=== PATIENT | female | born 1945 | race Caucasian/White ===

== ENCOUNTER → 2016-04-25 | Day surgery (SDC) | payer MEDICARE ==
--- NOTE | 2016-04-19 08:54 | MH ---
cc: JIMY SILVA DATE OF ADMISSION: 04/25/2016 ADMISSION DIAGNOSIS Cataract, right eye. HISTORY OF PRESENT ILLNESS This 70-year-old white female is coming through [facility] for the purpose of a lens extraction of the right eye with intraocular lens implant under local anesthesia. She has noticed decreasing visual acuity interfering with her daily activities and elected to have the above procedure. Her best corrected visual acuity is light perception only in the right eye and 20/30 in the left. PAST MEDICAL HISTORY The patient has a history of: 1. Hypertension. 2. Tachycardia. PAST SURGICAL HISTORY 1. Skin grafting at age 16. 2. Hysterectomy in 1984. MEDICATIONS Daily medications include: 1. Metoprolol. 2. Hydrochlorothiazide. 3. Baby aspirin. ALLERGIES She feels she is allergic to CODEINE in that it makes her sick. SOCIAL HISTORY The patient does not smoke for the last 30 years but used to smoke half a pack per day for 20 years. She does not drink alcohol. FAMILY HISTORY Noncontributory. REVIEW OF SYSTEMS HEAD: Patient denies severe headaches, dizziness or recent head injury. EARS: Patient denies hearing loss, ear pain, discharge or ringing in the ears. NOSE: Patient denies nasal discharge, obstruction or frequent colds. MOUTH AND THROAT: Patient denies soreness of the mouth or tongue, bleeding gums, trouble swallowing, changes in voice or sore throat. NECK: Patient denies neck pain or swelling, limitation of neck movement or neck injury. CARDIOPULMONARY SYSTEM: Patient denies shortness of breath, orthopnea, chronic cough, sputum production, hemoptysis, chest pain, wheezing, palpitations or light-headedness. GI SYSTEM: Patient denies poor appetite, nausea, vomiting, abdominal pain, ulcers, or change in bowel habits. The patient does have a history of hemorrhoids. SYSTEM: The patient denies urinary frequency, dysuria, change in urine color. NERVOUS SYSTEM: Patient denies convulsions, vertigo, stroke, numbness or weakness. PHYSICAL EXAMINATION VITAL SIGNS: Blood pressure 138/90, pulse 72, respirations 20. HEAD: Normocephalic, atraumatic. NOSE: Without rhinorrhea. THROAT: Clear. NECK: Supple. CHEST: Clear. HEART: Regular rhythm. ABDOMEN: Without tenderness. EXTREMITIES: With irregular shapes to the fingers of both hands secondary to medel as a child. Lower extremities without edema. NEUROLOGIC: Within normal limits. MENTAL STATUS: Within normal limits. EYE EXAMINATION: The patient's best corrected visual acuity is light perception only in the right eye and 20/30 in the left. Visual andrew are full to confrontation testing in the left eye. She is unable to perform visual field testing in the right eye due to the poor visual acuity. Extraocular muscle exam reveals full versions with orthophoria in the distance and exophoria at near. Pupils are 3 mm equal, round, and reactive to light without afferent defect. Anterior segment examination reveals corneal guttata in both eyes. There is an iris nevus in the left eye. A dense white mature cataract is noted in the right eye. There are nuclear sclerotic and anterior cortical cataract changes in the left. Intraocular pressure is 20 in the right eye and 19 in the left by applanation tonometry. Dilated fundus exam offers no view to the right eye secondary to the dense cataract. Six months ago the background and fundus of the right eye were within normal limits. The left eye has sharp disk with cup-to-disk ratio of 0.3. The macula is clear and a posterior vitreous detachment with floaters is present in the left fundus. IMPRESSION 1. Bilateral cataracts, right much greater than the left. 2. Corneal guttata, both eyes. 3. Amblyopia, right eye. 4. Iris nevus, left eye. 5. Posterior vitreous detachment with floaters, left eye. PLAN Lens extraction of the right eye with intraocular lens implant under local anesthesia through [facility]. Vision blue dye will be required due to the mature cataract present. The patient has been cleared medically. She has been counseled as to the risks, benefits and alternatives and elected to proceed. I feel that cataract surgery will improve the quality of life and activities of daily living in this patient. MD RAVEN Rahman/ANKUSH /2:32 PM /8:53 AM
[~2016-04-25] VITALS: Ht 152.4 cm; Wt 61.5 kg
[~2016-04-25] MED LIST: ACETYLCHOLINE CHL OPHT SOLN 1:100 2 ML VIAL ONE; EPINEPHrine HCL (1:1000) 1 MG/ML VIAL ONE; HYALURONIDASE/LIDOCAINE/BUPIVACAINE 4.5 ML SYR RIGHT EYE ONE; HYALURONIDASE/LIDOCAINE/BUPIVACAINE 6 ML SYR RIGHT EYE ONE; HYDR12.57 PO; METO25TA3 PO; MIDAZOLAM HCL 2 MG/2 ML VIAL ONE; PROPARACAINE HCL 0.5% OPHT SOLN 15 ML BTL RIGHT EYE ONE; PROPOFOL 200 MG/20 ML AMP ONE; SODIUM CHLORID 0.9% 500 ML INJ 500 ML ONE; TOBRAMYCIN/DEXAMETHASONE OPTH OINT 3.5 GM TUBE ONE; TRYPAN BLUE 0.5 ML OPHT DYE SYRINGE RIGHT EYE ONE; VISCOAT OPHT IRRIG SOLN 0.75 ML SYRINGE RIGHT EYE ONE
[2016-04-25] MEDS: PHENYLEPHRINE HCL 2.5% OPTH SOLN 2 ML BTL RIGHT EYE SCH ×4 (10:00→10:09)
[2016-04-25] MEDS: CYCLOPENTOLATE HCL 1% OPHT SOLN 2 ML BTL RIGHT EYE SCH ×4 (10:00→10:09)
[2016-04-25] MEDS: DICLOFENAC SOD 0.1% OPHT SOLN 2.5 ML BTL RIGHT EYE SCH ×4 (10:00→10:09)
[2016-04-25] MEDS: TROPICAMIDE 1% OPHT SOLN 15 ML BTL RIGHT EYE SCH ×4 (10:00→10:09)
[2016-04-25] MEDS: GATIFLOXACIN 0.5% OPHT SOLN 2.5 ML BTL RIGHT EYE SCH ×4 (10:00→10:09)
[2016-04-25 10:09] VITALS: BP 152/91; PULSE 86; RESP 18; TEMP 98; O2SAT 98
[2016-04-25] MEDS: PILOCARPINE HCL 2% OPHT SOLN 15 ML BTL ONE ×2 (12:24→13:17)
[2016-04-25] MEDS: TOBRAMYCIN/DEXAMETHASONE OPTH OINT 3.5 GM TUBE ONE ×2 (12:30→13:17)
[2016-04-25 13:45] VITALS: BP 137/84; PULSE 86; RESP 16; TEMP 98.4; O2SAT 96
--- NOTE | 2016-04-26 13:32 | MP ---
cc: JIMY ESCOBAR DATE OF SURGERY 04/25/2016 this year. PREOPERATIVE DIAGNOSIS Cataract right eye POSTOPERATIVE DIAGNOSIS Cataract right eye. OPERATION Extracapsular cataract extraction with posterior chamber intraocular lens implant by phacoemulsification, right eye. SURGEON Jimy Escobar M.D. ANESTHESIA Local COMPLICATIONS None INDICATIONS See history and physical previously dictated. OPERATIVE PROCEDURE The patient had adequate retrobulbar and eyelid blocks administered in the holding area and was brought to the operating room. The right eye was prepped and draped in the usual sterile ophthalmic manner. A lid speculum was inserted in the right eye. A 4-0 silk bridle suture was placed through the conjunctiva near the superior rectus muscle and it was tagged to the drape. A fornix-based conjunctival flap was prepared spanning approximately 5 mm in width. Hemostasis was obtained with wet-field cautery. A 3.5 mm groove was made 1 mm from the limbus and dissected up to the limbus in the form of a scleral pocket incision. A stab incision was then made at the 2 o'clock position. Viscoelastic was injected into the anterior chamber. This was followed by some balanced salt solution between the Viscoelastic and the lens and then Vision Blue dye was injected onto the anterior surface of the lens and spread across the surface to stain the anterior capsule for the capsulorrhexis as the patient has a mature white cataract. The anterior chamber was entered with a 2.75 mm keratome through the scleral pocket incision. A 360 degree continuous curvilinear capsulorrhexis was then performed with some difficulty at the 5 o'clock position where it tried to run out. Hydrodissection was utilized to divide the nucleus into inner and outer components and to separate the cortex from the capsule. Phacoemulsification was then utilized to remove the nucleus. The outer nuclear layer was removed with irrigation and aspiration and short bursts of ultrasound as necessary. The cortex was removed with the irrigation/aspiration handpiece. The posterior capsule was polished with the capsule polisher. Viscoelastic was injected into the capsular bag. The intraocular lens was inspected and found to be in good condition. The lens utilized was a Harshad, model number SA60AT with a power of +20.5 diopters. The lens was inserted into the capsular bag. The viscoelastic in the anterior chamber was then removed with the irrigation-aspiration handpiece. Viscoelastic was also removed from beneath the intraocular lens. The anterior chamber was filled with Miochol-E through the stab incision and pressurized. The wound was checked for leaks at this pressure and normalized pressure and there were none. The 4-0 bridle suture was removed. The conjunctival flap was brought down over the wound and secured with cautery. Pilocarpine 2% eye drops were instilled topically. The lid speculum was removed. TobraDex ophthalmic ointment was applied. The eye was double patched and shielded. The patient tolerated the procedure well and left the Operating Room in satisfactory condition. MD RAVEN Rahman/ZULEIMA /4:36 PM /1:28 PM
== END | disposition home or self-care (01) ==
LOC: CSDC 09:03
PROVIDERS: ATTEND Ophthalmology
DX: H26.9 Unspecified cataract (principal)
CPT/HCPCS: 00142; 66984; J0171; J2250; J7040; V2632